=== PATIENT | male | born 1985 | race Caucasian/White ===

== ENCOUNTER 2021-07-20 23:12 | Inpatient (IN) | payer MEDICARE, MEDICAID, SELFPAY ==
--- NOTE | ~2021-07-20 | CT_ITS ---
EXAMINATION: CT ABDOMEN AND PELVIS WITHOUT CONTRAST CLINICAL INFORMATION: Abdominal pain. Question pancreatitis. COMPARISON: None TECHNIQUE: Multidetector volumetric imaging was performed from the superior aspect of the liver through the pubic symphysis. Sagittal and coronal reformatted images were obtained on the technologist's workstation. This CT examination was performed using dose optimization techniques as appropriate, variously including the following: *Automated exposure control *Adjustment of mA and/or kV according to patient size (this includes techniques or standardized protocols for targeted exams where dose is matched to indication/reason for exam; i.e. extremities or head) *Use of iterative reconstruction technique DLP: 774 mGy-cm FINDINGS: LUNG BASES: The visualized lung bases are unremarkable. LIVER, GALLBLADDER, AND BILIARY TREE: The liver is normal in size and shape. Parenchymal hypoattenuation, consistent with steatosis. No focal hepatic lesion or biliary ductal dilatation is present. The gallbladder is unremarkable with no evidence of radiopaque gallstones, gallbladder wall thickening, or obvious pericholecystic inflammatory changes. PANCREAS: There is diffuse thickening and heterogeneity of the pancreas with prominent adjacent fat stranding, consistent with acute pancreatitis. There is mild adjacent upper abdominal free fluid. No definite organized fluid collection or pseudocyst formation. Evaluation is somewhat limited without IV contrast. No pancreatic ductal dilatation. SPLEEN: Unremarkable. ADRENAL GLANDS: Unremarkable. KIDNEYS AND URETERS: The kidneys are normal in size, shape, and attenuation. No hydronephrosis, hydroureter, or calculi seen. No perinephric stranding. BLADDER: Unremarkable. GASTROINTESTINAL TRACT: There is mild wall thickening and inflammatory change adjacent to the gastric fundus and antrum as well as within the upper abdominal small bowel loops, reactive to the adjacent pancreatitis. Additionally, there is bowel wall thickening and inflammatory change adjacent to the splenic flexure, also likely reactive. No evidence of perforation or abscess formation. Unremarkable appendix. No small or large bowel obstruction. PERITONEAL CAVITY: No intra-abdominal free air. No organized fluid collection/abscess formation. ABDOMINAL WALL: No significant hernia is appreciated. LYMPH NODES: Normal. VASCULAR: Unremarkable. PELVIC VISCERA: The prostate and seminal vesicles are unremarkable. OSSEOUS STRUCTURES: Unremarkable. CT/CT abdomen pelvis wo con IMPRESSION: Findings consistent with prominent acute pancreatitis. There is significant adjacent fat stranding without evidence of an organized fluid collection or pseudocyst formation. Evaluation is somewhat limited without IV contrast. Reactive bowel wall thickening and edema within the adjacent gastric fundus and antrum as well as the adjacent small bowel loops and splenic flexure of the colon. No evidence of bowel perforation or abscess formation. Trace upper abdominal ascites. Fleischner guidelines were followed.
[2021-07-20 23:18] VITALS: BP 150/100; PULSE 65; O2SAT 98
[2021-07-21 00:38] VITALS: BP 138/85; PULSE 57; RESP 18; TEMP 36.7; O2SAT 98; BMI 27.8
[2021-07-21] MEDS: Ondansetron ODT 4 MG TAB.RAPDIS TRANSLINGU (00:45)
[2021-07-21] MEDS: Acetaminophen 325 MG TABLET 650 MG PO (00:45)
[2021-07-21 01:06] LABS: MANUAL DIFF FLAG NO
[2021-07-21 01:07] LABS: Basophils Percent Auto 0.1 % (0-2); Hematocrit 44.4 % (42.0-52.0); Hemoglobin 15.4 g/dl (14.0-18.0); Imm Gran Abs Auto 0.05 X10*3/uL (0.00-0.03); Imm Gran Pct Auto 0.4 % (0.0-0.4); Lymphocytes Absolute Auto 0.9 X10*3/uL (1.2-4.9); Lymphocytes Percent Auto 6.5 % (20-40); Mean Corpuscular HGB Conc 34.7 g/dl (31.0-36.0); Mean Corpuscular Hemoglobin 30.7 pg (27.0-33.0); Mean Corpuscular Volume 88.4 fL (80.0-98.0); Mean Platelet Volume 9.6 fL (9.4-12.4); Monocytes Absolute Auto 0.6 X10*3/uL (0.1-1.2); Monocytes Percent Auto 4.2 % (2-11); Neutrophils Absolute Auto 12.1 x10*3/uL (2.0-8.3); Neutrophils Percent Auto 88.8 % (45-73); Platelet Count 262 X10*3/uL (160-400); Red Blood Count 5.02 X10*6/uL (4.60-5.80); Red Cell Distribution Width 15.8 % (11.0-16.0); White Blood Count 13.6 X10*3/uL (4.8-10.8)
--- NOTE | 2021-07-21 01:15 | PC.NURSE ---
Pt with poor venous access d/t drug abuse. Triage nurse Jose Guadalupe WISE could only draw CBC.
[2021-07-21 04:14] LABS: Alanine Aminotransferase 34 U/L (0-40); Albumin Level 4.1 g/dL (3.5-5.0); Alkaline Phosphatase 144 U/L (39-117); Anion Gap 18 (12-20); Aspartate Amino Transferase 33 U/L (5-37); Bilirubin Total 1.1 mg/dL (0.0-1.0); Blood Urea Nitrogen 9 mg/dL (9-16); Calcium 9.8 mg/dL (8.4-10.2); Carbon Dioxide 18 mmol/L (22-29); Chloride 105 mmol/L (96-108); Cholesterol 185 mg/dL; Creatinine Clr Calc Pharmacy 122.3; Estimated Glomerular Filt Rate > 60; Glucose Random 168 mg/dL (60-115); HDL Cholesterol 32 mg/dL; LDL Cholesterol Calculated 126 mg/dl; Potassium 5.3 mmol/L (3.3-5.1); Sodium 136 mmol/L (135-145); Total Protein 7.8 g/dL (6.5-8.0); Triglycerides 137 mg/dL
--- NOTE | 2021-07-21 04:44 | ED.ALCOHOL ---
HPI - Alcohol General Chief Complaint: ETOH/Substance Use Stated Complaint: ABD Pain Time Seen by Provider: 07/21/21 04:29 Source: patient Mode of arrival: EMS History of Present Illness HPI narrative: 36-year-old male who is on the methadone program and and occasional heroin user, but primarily drinks alcohol almost daily states that he has been unable to drink secondary to multiple episodes of nausea and vomiting without blood for most of the day and subsequent epigastric pain but denies any fever or chills, diarrhea, or urinary symptoms. Patient states he has had mild withdrawal symptoms before with the shakes but denies any seizure activity. Related Data Allergies Allergy/AdvReac Type Severity Reaction Status Date / Time quetiapine [From SEROQUEL] Allergy Intermediate IRRITABILIT Unverified 11/10/19 16:04 Y Review of Systems Review of Systems: Pertinent positives and negatives as stated in HPI 10 point review of systems is otherwise negative. PMFSH Past Medical History Source: nursing notes reviewed Social History Social History Advance Directives: No Physical Exam ED Vital Signs: Vital Signs - 24 hr 07/21/21 00:38 07/21/21 07:44 Temperature 98.0 F Pulse Rate 57 66 Respiratory Rate 18 14 Blood Pressure 138/85 143/79 H Pulse Oximetry 98 99 BMI result Body Mass Index 27.8 VITAL SIGNS: Reviewed. GENERAL: Well developed, well nourished, in no acute distress. HEAD: Normocephalic/atraumatic EYES: PERRLA, EOMI EARS: Ext canals without abnormality OROPHARYNX: no oral lesions noted, posterior pharynx clear LUNGS: Normal breath sounds. No adventitious sounds or accessory muscle use. SpO2<98> CARDIOVASCULAR: Regular rate and rhythm without noted murmurs ABDOMEN: Soft, epigastric discomfort, non-distended with bowel sounds. No rigidity. No guarding. No palpable masses or hernias noted MUSCULOSKELETAL: No tenderness, deformities, or effusions noted on gross inspection. EXTREMITIES: No cyanosis, clubbing or edema. SKIN: Inspection of the skin reveals no rashes NEUROLOGIC: Alert and oriented x 4. Strength and sensation to light touch were grossly intact x 4. Course Course Course Narrative: 36-year-old male with history and clinical presentation consistent with alcoholic gastritis and will rule pancreatitis. Patient received 2 L of IV fluids, antiemetics, as well as gastritis medication. Review of all investigations consistent with patient's multiple episodes of nausea and vomiting likely resulting in reactive leukocytosis as well as moderate dehydration with a noted bicarb-18. Will continue to observe and repeat BMP at 06:00. Review and re-evaluation consistent with improvement moderate dehydration, chemistries demonstrate improvement, but patient continues to have considerable pain as well as being nauseous. CT scan ordered as well as alcohol withdrawal protocol. I discussed this case with the inpatient hospitalist who accepts admission. MDM - Alcohol Lab Data Result diagrams: 07/21/21 00:47 07/21/21 05:44 Labs: Lab Results 07/21/21 07/21/21 07/21/21 Range/Units 00:47 03:42 05:44 WBC 13.6 H (4.8-10.8) X10*3/uL RBC 5.02 (4.60-5.80) X10*6/uL Hgb 15.4 (14.0-18.0) g/dl Hct 44.4 (42.0-52.0) % MCV 88.4 (80.0-98.0) fL MCH 30.7 (27.0-33.0) pg MCHC 34.7 (31.0-36.0) g/dl RDW 15.8 (11.0-16.0) % Plt Count 262 (160-400) X10*3/uL MPV 9.6 (9.4-12.4) fL Immature Gran % (Auto) 0.4 (0.0-0.4) % Neut % (Auto) 88.8 H (45-73) % Lymph % (Auto) 6.5 L (20-40) % [place] % (Auto) 4.2 (2-11) % Eos % (Auto) 0.0 (0-4) % Baso % (Auto) 0.1 (0-2) % Lymph # (Auto) 0.9 L (1.2-4.9) X10*3/uL [place] # (Auto) 0.6 (0.1-1.2) X10*3/uL Eos # (Auto) 0.0 (0.0-0.4) X10*3/uL Baso # (Auto) 0.0 (0.0-0.2) X10*3/uL Abs Immat Gran (auto) 0.05 H (0.00-0.03) X10*3/uL Absolute Neuts (auto) 12.1 H (2.0-8.3) x10*3/uL Absolute Nucleated RBC 0.000 (0.0-0.012) X10*3/uL Nucleated RBC % (auto) 0.0 (0.0-0.2) /100WBC Sodium 136 136 (135-145) mmol/L Potassium 5.3 H 4.3 (3.3-5.1) mmol/L Chloride 105 104 (96-108) mmol/L Carbon Dioxide 18 L 21 L (22-29) mmol/L Anion Gap 18 15 (12-20) BUN 9 10 (9-16) mg/dL Creatinine 0.98 0.89 (0.5-1.4) mg/dL Estim Creat Clear Calc 122.3 134.7 Estimated GFR > 60 > 60 Random Glucose 168 H 185 H (60-115) mg/dL Calcium 9.8 9.9 (8.4-10.2) mg/dL Magnesium 1.9 (1.6-2.6) mg/dL Total Bilirubin 1.1 H (0.0-1.0) mg/dL AST 33 (5-37) U/L ALT 34 (0-40) U/L Alkaline Phosphatase 144 H (39-117) U/L Total Protein 7.8 (6.5-8.0) g/dL Albumin 4.1 (3.5-5.0) g/dL Triglycerides 137 mg/dL Cholesterol 185 mg/dL LDL Cholesterol, Calc 126 mg/dl HDL Cholesterol 32 mg/dL Lipase 963 H (8-78) U/L Discharge Plan Discharge Clinical Impression: Alcohol dependence, Acute alcoholic gastritis, Dehydration, moderate, Acute pancreatitis Patient Disposition: Admitted As Inpatient
[2021-07-21 04:58] LABS: Lipase 963 U/L (8-78)
[2021-07-21 05:13] LABS: Magnesium 1.9 mg/dL (1.6-2.6)
[2021-07-21] MEDS: chlordiazePOXIDE HCl 25 MG CAPSULE PO (05:13)
[2021-07-21] MEDS: Pantoprazole Sodium 40 MG/10 ML VIAL IVPUSH (05:14)
[2021-07-21] MEDS: Prochlorperazine Edisylate 10 MG/2 ML VIAL IVPUSH (05:14)
[2021-07-21] MEDS: 0.9 % Sodium Chloride 2,000 ML 999 ML IV (05:30)
[2021-07-21 06:05] LABS: Anion Gap 15 (12-20); Blood Urea Nitrogen 10 mg/dL (9-16); Calcium 9.9 mg/dL (8.4-10.2); Carbon Dioxide 21 mmol/L (22-29); Chloride 104 mmol/L (96-108); Creatinine Clr Calc Pharmacy 134.7; Estimated Glomerular Filt Rate > 60; Glucose Random 185 mg/dL (60-115); Potassium 4.3 mmol/L (3.3-5.1); Sodium 136 mmol/L (135-145)
[2021-07-21 07:44] VITALS: BP 143/79; PULSE 66; RESP 14; O2SAT 99
[2021-07-21 08:34] LABS: COVID-19 Test Positive (Negative); IDNOW Serial# 16C4AD1C
[2021-07-21] MEDS: HYDROmorphone HCl 0.5 MG/0.5 ML SYRINGE 0.25 MG IVPUSH (08:35)
[2021-07-21] MEDS: ondansetron HCL 4 MG/2 ML VIAL IVPUSH (08:36)
[2021-07-21] MEDS: 0.9 % Sodium Chloride 1,000 ML 200 ML IVCONT (08:42)
--- NOTE | 2021-07-21 09:20 | PHA.MEDREC ---
Pharmacy Consult ? Medication Reconciliation Pharmacy has completed the medication reconciliation. Patient seems to be a poor historian. Reports taking olanzapine 15 mg as need instead of as prescribed. I left in the home medication list as a daily medication. Patient reports he is on methadone 75 mg daily. Will F/U with methadone clinic in [place]. Adrienne Olivas, ElizabethD
--- NOTE | 2021-07-21 11:09 | HE.PHANOTE ---
Methadone dose confirm with [facility]. Patient recieved 75 mg on 07/19/2021 confirmed with [facility]. Adrienne Olivas, ElizabethD
--- NOTE | 2021-07-21 11:30 | MHC.RECOVSUP ---
Recovery Support note: Patient is a 36 year old [place]utanese speaking male who [place] [facility] due to nausea and vomiting. Patient is currently pending admission. This service writer advisor met with patient briefly to methadone maintenance. Patient reports he last received 75mg through [facility] [place] [address] on 07/19. Per EMR, pharmacy confirmed this. Discussed case with Shanta RENE. Patient to resume his methadone. ED staff aware.
--- NOTE | 2021-07-21 11:48 | P.HPHOSP_ITS ---
History of Present Illness Date of Service: 07/21/21 Attending physician on admission: Kwesi [facility] Chief Complaint: Abdominal pain 36-year-old man presenting to the ER with complaints of worsening nausea vomiting, abdominal pain over the last 3 days. He also reported chills but denied fever, recent illness, recent travel, improperly cooked foods, chest pain, shortness of breath, diarrhea. He reports that he drinks about 6 naps a day and has a history of IV heroin but reported that he had not used in several weeks. At this time he is homeless. He reported diffuse abdominal pain with some radiation to his back. Abdominal CT showing findings consistent with prominent acute pancreatitis with no organized fluid collection or pseudocyst. No significant electrolyte abnormalities noted other than lipase of 963. In the ER he was given IV fluids, pain medication and was started on phenobarbital. He will be admitted for further management and treatment of acute pancreatitis. Review of Systems Review of Systems: Denies any recent fever chills or decrease in appetite respiratory denies any shortness of breath coverage production cardiovascular Denies chest pain gastrointestinal see HPI genitourinary denies any dysuria frequency or hematuria musculoskeletal denies any joint pain or swelling neuropsych denies any weakness or seizures all other systems reviewed are negative [facility] Medical History (Updated 07/21/21 @ 11:52 by María Denny NP) Alcohol dependence Hepatitis C Mental health disorder Substance abuse Pertinent family history: no reported history of cardiac disease Social History Advance Directives: No Meds Allergies Allergy/AdvReac Type Severity Reaction Status Date / Time quetiapine [From SEROQUEL] Allergy Intermediate IRRITABILIT Unverified 11/10/19 16:04 Y Active Medications: Current Medications Acetaminophen (Acetaminophen 325 Mg Tablet) 650 mg PO Q6H PRN PRN Reason: Pain, Mild (Pain Scale 1-3) Clonazepam (Clonazepam 0.5 Mg Tablet) 0.5 mg PO DAILY PRN PRN Reason: Anxiety Enoxaparin Sodium (Enoxaparin Sodium 40 Mg/0.4 Ml Syringe) 40 mg SUBCUT Q24H [facility] Famotidine (Famotidine/Pf 20 Mg/2 Ml Vial) 20 mg IVPUSH BID NATALIE Folic Acid (Folic Acid 1 Mg Tablet) 1 mg PO DAILY [facility] Hydromorphone HCl (Hydromorphone Hcl 1 Mg/Ml Syringe) 1 mg IVPUSH Q4H PRN; Protocol PRN Reason: Pain, Moderate (Pain Scale 4-6 Sodium Chloride (Ns) 1,000 mls @ 200 mls/hr IVCONT .Q5H [facility] Stop: 07/21/21 12:59 Last Admin: 07/21/21 08:42 Dose: 200 mls/hr Documented by: Lactated Ringer's (Lr) 1,000 mls @ 150 mls/hr IVCONT .Q6H40M [facility] Non-Formulary Medication (Glecaprevir-Pibrentasvir [Mavyret]) 3 tab PO DAILY [facility] Non-Formulary Medication (Methadone) 75 mg PO DAILY [facility] Olanzapine (Olanzapine 7.5 Mg Tablet) 15 mg PO DAILY [facility] Ondansetron HCl (Ondansetron Hcl 4 Mg/2 Ml Vial) 4 mg IVPUSH Q8H PRN PRN Reason: Nausea and Vomiting Pharmacy Consult (Consult Rx Perform Med Rec) 1 each MISCELLANE ONCE PRN PRN Reason: Consult order Pharmacy Consult (Consult Rx Etoh Phenob Po Dose) 1 each MISCELLANE ONCE PRN; Protocol PRN Reason: Consult order Phenobarbital (Phenobarbital 30 Mg Tablet) 30 mg PO Q4H PRN PRN Reason: Breakthrough alcohol withdrawa Phenobarbital 200 mg/ (Phenobarbital 30 mg) 230 mg PO Q3H [facility] Stop: 07/21/21 14:01 Phenobarbital (Phenobarbital 30 Mg Tablet) 60 mg PO BID [facility]; Protocol Stop: 07/23/21 09:01 Phenobarbital (Phenobarbital 30 Mg Tablet) 30 mg PO BID [facility]; Protocol Stop: 07/25/21 09:01 Phenobarbital (Phenobarbital 30 Mg Tablet) 30 mg PO DAILY [facility]; Protocol Stop: 07/26/21 09:01 Sodium Chloride (0.9 % Sodium Chloride Flush 3 Ml Syringe) 3 ml IVFLUSH QSHIFT [facility] Thiamine HCl (Thiamine Hcl 100 Mg Tablet) 100 mg PO DAILY [facility] Home Medications Medication Instructions Recorded Confirmed Last Taken Type clonazepam 0.5 mg tablet 1 tab PO DAILY PRN 07/21/21 07/21/21 Unknown History glecaprevir 100 mg-pibrentasvir 40 3 tab PO DAILY 07/21/21 07/21/21 Unknown History mg tablet (Mavyret) methadone 5 mg/5 mL oral solution 75 mg PO DAILY 07/21/21 07/21/21 07/19/21 History olanzapine 15 mg tablet 1 tab PO DAILY 07/21/21 07/21/21 Unknown History Physical Exam Vital Signs and Narrative: Vital Signs: Last Vital Signs Temp 98.0 F 07/21/21 00:38 Pulse 66 07/21/21 07:44 Resp 14 07/21/21 07:44 BP 143/79 H 07/21/21 07:44 Pulse Ox 99 07/21/21 07:44 BMI result Body Mass Index 27.8 Appearing in no acute distress head is normocephalic atraumatic eyes pupils are PERRLA sclera is anicteric mouth throat mucous membranes are intact and moist neck is supple no lymphadenopathy, no JVD noted lung sounds are clear to auscultation heart regular rate rhythm, clear S1, S2 positive bowel sounds, abdomen is soft, nontender neuro patient is alert x3, no focal deficits Results Labs CBC and Chem 7: 07/21/21 00:47 07/21/21 05:44 Labs: Laboratory Results - last 24 hr 07/21/21 07/21/21 07/21/21 00:47 03:42 05:44 MCV 88.4 MCH 30.7 MCHC 34.7 RDW 15.8 Plt Count 262 MPV 9.6 Immature Gran % (Auto) 0.4 Neut % (Auto) 88.8 H Lymph % (Auto) 6.5 L [place] % (Auto) 4.2 Eos % (Auto) 0.0 Baso % (Auto) 0.1 Lymph # (Auto) 0.9 L [place] # (Auto) 0.6 Eos # (Auto) 0.0 Baso # (Auto) 0.0 Abs Immat Gran (auto) 0.05 H Absolute Neuts (auto) 12.1 H Absolute Nucleated RBC 0.000 Nucleated RBC % (auto) 0.0 Anion Gap 18 15 Estim Creat Clear Calc 122.3 134.7 Estimated GFR > 60 > 60 Random Glucose 168 H 185 H Calcium 9.8 9.9 Magnesium 1.9 Total Bilirubin 1.1 H AST 33 ALT 34 Alkaline Phosphatase 144 H Total Protein 7.8 Albumin 4.1 Triglycerides 137 Cholesterol 185 LDL Cholesterol, Calc 126 HDL Cholesterol 32 Lipase 963 H COVID-19 (GLADIS) COVID-19 Clin Com 07/21/21 08:17 MCV MCH MCHC RDW Plt Count MPV Immature Gran % (Auto) Neut % (Auto) Lymph % (Auto) [place] % (Auto) Eos % (Auto) Baso % (Auto) Lymph # (Auto) [place] # (Auto) Eos # (Auto) Baso # (Auto) Abs Immat Gran (auto) Absolute Neuts (auto) Absolute Nucleated RBC Nucleated RBC % (auto) Anion Gap Estim Creat Clear Calc Estimated GFR Random Glucose Calcium Magnesium Total Bilirubin AST ALT Alkaline Phosphatase Total Protein Albumin Triglycerides Cholesterol LDL Cholesterol, Calc HDL Cholesterol Lipase COVID-19 (GLADIS) Positive A COVID-19 Clin Com See Note Imaging Radiologist's Impressions: Impressions Abdomen/Pelvis CT 07/21/21 08:38 IMPRESSION: Findings consistent with prominent acute pancreatitis. There is significant adjacent fat stranding without evidence of an organized fluid collection or pseudocyst formation. Evaluation is somewhat limited without IV contrast. Reactive bowel wall thickening and edema within the adjacent gastric fundus and antrum as well as the adjacent small bowel loops and splenic flexure of the colon. No evidence of bowel perforation or abscess formation. Trace upper abdominal ascites. Fleischner guidelines were followed. Assessment and Plan (1) Acute alcoholic gastritis: Status: Acute Plan 36-year-old man at admitted with acute pancreatitis secondary to alcohol abuse Acute pancreatitis Drinks 6 nips a day Abdominal CT showing pancreatitis without pseudocyst or fluid collection Aggressive IV fluid hydration with LR@150 Pain management Follow lipase IV Pepcid Clear liquid diet for now if tolerated Alcohol abuse No overt withdrawal symptoms Start phenobarbital Substance abuse History of heroin use Monitor for withdrawal symptoms Continue methadone Mental health Continue home medications History of hepatitis-C Continue current treatment DVT prophylaxis with Lovenox Attending Dr. Valerio Full code Quality Stroke Does the patient have a stroke diagnosis?: No VTE Prior VTE?: No VTE Risk Level:: Medical - moderate - high VTE Device Contraindication: Treatment Not Indicated VTE Drug Contraindication: N/A - Med Ordered
[2021-07-21] MEDS: PHENobarbitaL 200 MG, PHENobarbitaL 30 MG 230 MG PO ×2 (12:02→14:36)
[2021-07-21] MEDS: methADONE HCl 20 MG/2 ML ORAL.CONC 75 MG PO (12:04)
[2021-07-21] MEDS: Lactated Ringers 1,000 ML 150 ML IVCONT ×2 (12:23→21:53)
[2021-07-21 16:10] VITALS: BP 129/73; PULSE 82; RESP 18; TEMP 36.8; O2SAT 97
[2021-07-21] MEDS: HYDROmorphone HCl 1 MG/ML SYRINGE IVPUSH ×2 (20:33→23:41)
[2021-07-21] MEDS: PHENobarbitaL 30 MG TABLET 60 MG PO (21:49)
[2021-07-21] MEDS: Famotidine/PF 20 MG/2 ML VIAL IVPUSH (21:50)
--- NOTE | 2021-07-21 23:35 | PC.NURSE ---
Pt. repeatedly c/o pain and requesting another dose of Dilaudid. Dilaudid ordered Q4hrs. Provider MD Broderick ok to give next dose now, early.
[2021-07-22] VITALS: BP 141/78; PULSE 80; RESP 18; TEMP 36.8; O2SAT 97
[2021-07-22] MEDS: 0.9 % Sodium Chloride Flush 3 ML SYRINGE IVFLUSH ×2 (01:21→10:15)
[2021-07-22] MEDS: Lactated Ringers 1,000 ML 150 ML IVCONT ×2 (01:26→06:17)
[2021-07-22 04:13] VITALS: BP 124/82; PULSE 86; RESP 13; TEMP 36.4; O2SAT 96
[2021-07-22] MEDS: HYDROmorphone HCl 1 MG/ML SYRINGE IVPUSH ×5 (04:45→23:39)
[2021-07-22 07:10] LABS: Basophils Percent Auto 0.1 % (0-2); Eosinophils Percent Auto 0.2 % (0-4); Hematocrit 45.7 % (42.0-52.0); Hemoglobin 15.5 g/dl (14.0-18.0); Imm Gran Abs Auto 0.06 X10*3/uL (0.00-0.03); Imm Gran Pct Auto 0.5 % (0.0-0.4); Lymphocytes Absolute Auto 1.6 X10*3/uL (1.2-4.9); Lymphocytes Percent Auto 13.2 % (20-40); MANUAL DIFF FLAG NO; Mean Corpuscular HGB Conc 33.9 g/dl (31.0-36.0); Mean Corpuscular Hemoglobin 30.6 pg (27.0-33.0); Mean Corpuscular Volume 90.3 fL (80.0-98.0); Monocytes Percent Auto 8.5 % (2-11); Neutrophils Absolute Auto 9.4 x10*3/uL (2.0-8.3); Neutrophils Percent Auto 77.5 % (45-73); Platelet Count 227 X10*3/uL (160-400); Red Blood Count 5.06 X10*6/uL (4.60-5.80); White Blood Count 12.1 X10*3/uL (4.8-10.8)
[2021-07-22 07:32] LABS: Lipase 568 U/L (8-78)
[2021-07-22 07:41] LABS: Anion Gap 13 (12-20); Blood Urea Nitrogen 8 mg/dL (9-16); Carbon Dioxide 23 mmol/L (22-29); Chloride 101 mmol/L (96-108); Creatinine Clr Calc Pharmacy 159.9; Estimated Glomerular Filt Rate > 60; Glucose Random 115 mg/dL (60-115); Potassium 4.2 mmol/L (3.3-5.1); Sodium 133 mmol/L (135-145)
[2021-07-22 07:48] LABS: Calcium 9.1 mg/dL (8.4-10.2)
[2021-07-22] MEDS: Thiamine HCL 100 MG TABLET PO (09:20)
[2021-07-22] MEDS: Folic Acid 1 MG TABLET PO (09:20)
[2021-07-22] MEDS: methADONE HCl 20 MG/2 ML ORAL.CONC 75 MG PO (09:20)
[2021-07-22] MEDS: PHENobarbitaL 30 MG TABLET 60 MG PO ×2 (09:20→22:09)
[2021-07-22] MEDS: Famotidine/PF 20 MG/2 ML VIAL IVPUSH ×2 (10:15→22:08)
--- NOTE | 2021-07-22 11:15 | HO.PM.IMPN ---
Subjective Subjective Date of Service: 07/22/21 Review of Systems Follow up pancreatitis still with abd pain and nausea Physical Exam Vital Signs: Vital Signs: Last Vital Signs Temp 97.6 F 07/22/21 04:13 Pulse 86 07/22/21 04:13 Resp 13 07/22/21 04:13 BP 124/82 07/22/21 04:13 Pulse Ox 96 07/22/21 04:13 BMI result Body Mass Index 27.8 Appearing in no acute distress lung sounds are clear to auscultation heart regular rate rhythm, clear S1, S2 positive bowel sounds, abdomen is soft, nontender neuro patient is alert x3, no focal deficits Objective Data Active Medications Acetaminophen (Acetaminophen 325 Mg Tablet) 650 mg PO Q6H PRN PRN Reason: Pain, Mild (Pain Scale 1-3) Clonazepam (Clonazepam 0.5 Mg Tablet) 0.5 mg PO DAILY PRN PRN Reason: Anxiety Enoxaparin Sodium (Enoxaparin Sodium 40 Mg/0.4 Ml Syringe) 40 mg SUBCUT Q24H [facility] Last Admin: 07/21/21 12:05 Dose: Not Given Documented by: JHONNY Non-Admin Reason: Patient Refused Famotidine (Famotidine/Pf 20 Mg/2 Ml Vial) 20 mg IVPUSH BID [facility] Last Admin: 07/22/21 10:15 Dose: 20 mg Documented by: SANTHOSH Folic Acid (Folic Acid 1 Mg Tablet) 1 mg PO DAILY [facility] Last Admin: 07/22/21 09:20 Dose: 1 mg Documented by: SANTHOSH Hydromorphone HCl (Hydromorphone Hcl 1 Mg/Ml Syringe) 1 mg IVPUSH Q4H PRN; Protocol PRN Reason: Pain, Moderate (Pain Scale 4-6 Last Admin: 07/22/21 10:15 Dose: 1 mg Documented by: SANTHOSH Lactated Ringer's (Lr) 1,000 mls @ 150 mls/hr IVCONT .Q6H40M [facility] Last Infusion: 07/22/21 11:06 Dose: 0 mls/hr Documented by: SANTHOSH Methadone HCl (Methadone Hcl 20 Mg/2 Ml Oral.Conc) 75 mg PO DAILY [facility] Last Admin: 07/22/21 09:20 Dose: 75 mg Documented by: SANTHOSH Non-Formulary Medication (Glecaprevir-Pibrentasvir [Mavyret]) 3 tab PO DAILY [facility] Olanzapine (Olanzapine 7.5 Mg Tablet) 15 mg PO DAILY [facility] Ondansetron HCl (Ondansetron Hcl 4 Mg/2 Ml Vial) 4 mg IVPUSH Q8H PRN PRN Reason: Nausea and Vomiting Pharmacy Consult (Consult Rx Perform Med Rec) 1 each MISCELLANE ONCE PRN PRN Reason: Consult order Pharmacy Consult (Consult Rx Etoh Phenob Po Dose) 1 each MISCELLANE ONCE PRN; Protocol PRN Reason: Consult order Phenobarbital (Phenobarbital 30 Mg Tablet) 30 mg PO Q4H PRN PRN Reason: Breakthrough alcohol withdrawa Phenobarbital (Phenobarbital 30 Mg Tablet) 60 mg PO BID [facility]; Protocol Stop: 07/23/21 09:01 Last Admin: 07/22/21 09:20 Dose: 60 mg Documented by: SANTHOSH Phenobarbital (Phenobarbital 30 Mg Tablet) 30 mg PO BID [facility]; Protocol Stop: 07/25/21 09:01 Phenobarbital (Phenobarbital 30 Mg Tablet) 30 mg PO DAILY [facility]; Protocol Stop: 07/26/21 09:01 Sodium Chloride (0.9 % Sodium Chloride Flush 3 Ml Syringe) 3 ml IVFLUSH QSHIFT [facility] Last Admin: 07/22/21 10:15 Dose: 3 ml Documented by: SANTHOSH Thiamine HCl (Thiamine Hcl 100 Mg Tablet) 100 mg PO DAILY [facility] Last Admin: 07/22/21 09:20 Dose: 100 mg Documented by: SANTHOSH Labs CBC & Chem 7: 07/22/21 07:01 07/22/21 07:01 Labs: Laboratory Results - last 24 hr 07/22/21 07/22/21 07/22/21 07:01 07:01 07:01 MCV 90.3 MCH 30.6 MCHC 33.9 RDW 16.0 Plt Count 227 MPV 10.0 Immature Gran % (Auto) 0.5 H Neut % (Auto) 77.5 H Lymph % (Auto) 13.2 L [place] % (Auto) 8.5 Eos % (Auto) 0.2 Baso % (Auto) 0.1 Lymph # (Auto) 1.6 [place] # (Auto) 1.0 Eos # (Auto) 0.0 Baso # (Auto) 0.0 Abs Immat Gran (auto) 0.06 H Absolute Neuts (auto) 9.4 H Absolute Nucleated RBC 0.000 Nucleated RBC % (auto) 0.0 Anion Gap 13 Estim Creat Clear Calc 159.9 Estimated GFR > 60 Random Glucose 115 D Calcium 9.1 D Lipase 568 H Assessment and Plan (1) Acute alcoholic gastritis: Status: Acute Plan 36-year-old man at admitted with acute pancreatitis secondary to alcohol abuse Acute pancreatitis Drinks 6 nips a day Abdominal CT showing pancreatitis without pseudocyst or fluid collection Aggressive IV fluid hydration with LR@150 Pain management Follow lipase IV Pepcid Clear liquid diet for now if tolerated Covid 19 Asymptomatic no hypoxia Alcohol abuse No overt withdrawal symptoms Start phenobarbital Substance abuse History of heroin use Monitor for withdrawal symptoms Continue methadone Mental health Continue home medications History of hepatitis-C Continue current treatment DVT prophylaxis with Lovenox Attending Dr. Griffith Full code Quality Stroke Does the patient have a stroke diagnosis?: No VTE Prior VTE?: No VTE Risk Level:: Medical - moderate - high VTE Device Contraindication: Treatment Not Indicated VTE Drug Contraindication: N/A - Med Ordered
[2021-07-22] MEDS: Enoxaparin Sodium 40 MG/0.4 ML SYRINGE SUBCUT (11:16)
--- NOTE | 2021-07-22 14:01 | MHC.CM.PN ---
IMM 07/22/21, EMR REVIEWED, PT ADMITTED W/PANCREATITIS, CM MET W/PT WHO IS A&O, PT REPORTS HE LIVES ALONE, HAS METHADONE MAINT AT [facility] IN [place], PT DENIES USE OF DME OR ANY OTHER SERVICES, PT VERIFIES PCP IS [facility], DENIES BEING COVID VACCINATED AND CURRENTLY DECLINING TO COMPLETE A HCP. D/C PLAN: HOME NO SERVICES VS ADDITIONAL SA TX, PT TO ARRANGE TRANSPORT
[2021-07-22 14:49] VITALS: BP 118/79; PULSE 100; RESP 17; TEMP 37.3; O2SAT 96
[2021-07-22] MEDS: clonazePAM 0.5 MG TABLET PO (16:49)
[2021-07-22] MEDS: PHENobarbitaL 30 MG TABLET PO (16:49)
[2021-07-22] MEDS: OLANZapine 7.5 MG TABLET 15 MG PO (22:12)
[2021-07-22 23:48] VITALS: BP 153/94; PULSE 82; RESP 19; TEMP 37.1; O2SAT 94
--- NOTE | 2021-07-23 04:57 | PC.NURSE ---
Addendum entered by Richie Carrillo RN 07/23/21 05:37: PO DILAUDID 2MG GIVEN..REMAIN UNABLE TO REGAIN IV ACCESS...DECLINES FURTHER ATTEMPTS..STATED OK WITH PO DILAUDID FOR PAIN CONTROL Original Note: CARE ASSUMED 23:15..AWAKE..ALERT..ORIENTED X3...OOB AD PIERRE STEADY GAIT...LR 100 CC/HR AT HS...MEDICATED WITH PRN DILAUDID FOR C/O ABDOMINAL PAIN ..DOZING AFTERWARDS...IV FOUND DISLODGED AT 03:30 FOR F/U ASSESSMENT..UNABLE TO RESTART IV ACCESS...SPINNING FRAME FIXER UPDATED..FOR ER/ICU TEAM TO RE-ATTEMPT IV ACCESS...DR SWAIN UPDATED R/T NO IV ACCESS...PO DILAUDID X1 DOSE ORDERED BY ..PENDING VERIFICATION BY PHARMACY
[2021-07-23] MEDS: HYDROmorphone HCl 2 MG TABLET PO ×3 (05:15→21:10)
--- NOTE | 2021-07-23 07:02 | PM.EVENT ---
Event Note Date of Service: 07/23/21 Event Note: pt lost IV access, difficult to obtain a second IV despite nursing staff trying. IV Dilaudid changed to po with adequate pain control
--- NOTE | 2021-07-23 07:15 | HE.PHANOTE ---
SPOKE TO NURSE IN OVERFLOW; PATIENT IS HOMELESS AND DOES NOT HAVE NON-FORMULARY MAVYRET PER RN. 07/22/21
[2021-07-23 08:13] LABS: Anion Gap 13 (12-20); Blood Urea Nitrogen 7 mg/dL (9-16); Calcium 8.9 mg/dL (8.4-10.2); Carbon Dioxide 22 mmol/L (22-29); Chloride 103 mmol/L (96-108); Creatinine Clr Calc Pharmacy 157.8; Estimated Glomerular Filt Rate > 60; Glucose Random 104 mg/dL (60-115); Lipase 182 U/L (8-78); Potassium 4.3 mmol/L (3.3-5.1); Sodium 134 mmol/L (135-145)
[2021-07-23] MEDS: methADONE HCl 20 MG/2 ML ORAL.CONC 75 MG PO (08:22)
[2021-07-23] MEDS: Thiamine HCL 100 MG TABLET PO (08:22)
[2021-07-23] MEDS: Folic Acid 1 MG TABLET PO (08:22)
[2021-07-23] MEDS: PHENobarbitaL 30 MG TABLET 60 MG PO (08:22)
[2021-07-23 08:42] VITALS: BP 118/64; PULSE 87; RESP 20; TEMP 37.6; O2SAT 95
--- NOTE | 2021-07-23 09:24 | MHC.CM.PN ---
CM met with Patient at bedside (unaware that CM had already seen/assessed Patient). IMM addressed and the original has been given to him and a copy placed on the chart. Patient states that he lives with his EX-Girlfriend. CM will follow.
[2021-07-23] MEDS: Lactated Ringers 1,000 ML 150 ML IVCONT ×2 (12:10→17:26)
--- NOTE | 2021-07-23 12:16 | P.PNIM_ITS ---
Subjective Subjective Date of Service: 07/23/21 Review of Systems Follow up pancreatitis still with abd pain and nausea Physical Exam Vital Signs: Vital Signs: Last Vital Signs Temp 99.6 F 07/23/21 08:42 Pulse 87 07/23/21 08:42 Resp 20 07/23/21 08:42 BP 118/64 07/23/21 08:42 Pulse Ox 95 07/23/21 08:42 BMI result Body Mass Index 27.8 Appearing in no acute distress lung sounds are clear to auscultation heart regular rate rhythm, clear S1, S2 positive bowel sounds, abdomen is soft,diffuse tenderness neuro patient is alert x3, no focal deficits Objective Data Active Medications Acetaminophen (Acetaminophen 325 Mg Tablet) 650 mg PO Q6H PRN PRN Reason: Pain, Mild (Pain Scale 1-3) Clonazepam (Clonazepam 0.5 Mg Tablet) 0.5 mg PO DAILY PRN PRN Reason: Anxiety Last Admin: 07/22/21 16:49 Dose: 0.5 mg Documented by: SANTHOSH Enoxaparin Sodium (Enoxaparin Sodium 40 Mg/0.4 Ml Syringe) 40 mg SUBCUT Q24H [facility] Last Admin: 07/22/21 11:16 Dose: 40 mg Documented by: SANTHOSH Famotidine (Famotidine/Pf 20 Mg/2 Ml Vial) 20 mg IVPUSH BID [facility] Last Admin: 07/23/21 10:19 Dose: Not Given Documented by: JOSHUA Non-Admin Reason: No Access Folic Acid (Folic Acid 1 Mg Tablet) 1 mg PO DAILY [facility] Last Admin: 07/23/21 08:22 Dose: 1 mg Documented by: JOSHUA Hydromorphone HCl (Hydromorphone Hcl 2 Mg Tablet) 2 mg PO Q6H PRN PRN Reason: Pain, Severe (Pain Scale 7-10) Last Admin: 07/23/21 12:11 Dose: 2 mg Documented by: JOSHUA Lactated Ringer's (Lr) 1,000 mls @ 150 mls/hr IVCONT .Q6H40M [facility] Last Admin: 07/23/21 12:10 Dose: 150 mls/hr Documented by: JOSHUA Methadone HCl (Methadone Hcl 20 Mg/2 Ml Oral.Conc) 75 mg PO DAILY [facility] Last Admin: 07/23/21 08:22 Dose: 75 mg Documented by: JOSHUA Non-Formulary Medication (Glecaprevir-Pibrentasvir [Mavyret]) 3 tab PO DAILY [facility] Olanzapine (Olanzapine 7.5 Mg Tablet) 15 mg PO BEDTIME [facility] Last Admin: 07/22/21 22:12 Dose: 15 mg Documented by: GIBSON Ondansetron HCl (Ondansetron Hcl 4 Mg/2 Ml Vial) 4 mg IVPUSH Q8H PRN PRN Reason: Nausea and Vomiting Pharmacy Consult (Consult Rx Perform Med Rec) 1 each MISCELLANE ONCE PRN PRN Reason: Consult order Pharmacy Consult (Consult Rx Etoh Phenob Po Dose) 1 each MISCELLANE ONCE PRN; Protocol PRN Reason: Consult order Phenobarbital (Phenobarbital 30 Mg Tablet) 30 mg PO Q4H PRN PRN Reason: Breakthrough alcohol withdrawa Last Admin: 07/22/21 16:49 Dose: 30 mg Documented by: SANTHOSH Phenobarbital (Phenobarbital 30 Mg Tablet) 30 mg PO BID [facility]; Protocol Stop: 07/25/21 09:01 Phenobarbital (Phenobarbital 30 Mg Tablet) 30 mg PO DAILY [facility]; Protocol Stop: 07/26/21 09:01 Sodium Chloride (0.9 % Sodium Chloride Flush 3 Ml Syringe) 3 ml IVFLUSH QSHIFT [facility] Last Admin: 07/23/21 10:19 Dose: Not Given Documented by: JOSHUA Non-Admin Reason: No Access Thiamine HCl (Thiamine Hcl 100 Mg Tablet) 100 mg PO DAILY [facility] Last Admin: 07/23/21 08:22 Dose: 100 mg Documented by: JOSHUA Labs CBC & Chem 7: 07/22/21 07:01 07/23/21 07:46 Labs: Laboratory Results - last 24 hr 07/23/21 07/23/21 07:46 07:46 Anion Gap 13 Estim Creat Clear Calc 157.8 Estimated GFR > 60 Random Glucose 104 Calcium 8.9 Lipase 182 H Cancelled Assessment and Plan (1) Acute alcoholic gastritis: Status: Acute Plan 36-year-old man at admitted with acute pancreatitis secondary to alcohol abuse Acute pancreatitis still with abd pain Drinks 6 nips a day Abdominal CT showing pancreatitis without pseudocyst or fluid collection Aggressive IV fluid hydration with LR@150 Pain management Follow lipase IV Pepcid tolerating clear liquid diet Covid 19 Asymptomatic no hypoxia Alcohol abuse No overt withdrawal symptoms Start phenobarbital Substance abuse History of heroin use Monitor for withdrawal symptoms Continue methadone Mental health Continue home medications History of hepatitis-C Continue current treatment DVT prophylaxis with Lovenox Attending Dr. Jacobs Full code Continue hospitalization for treatment of acute pancreatitis requiring IV pain medication and IV fluids Quality Stroke Does the patient have a stroke diagnosis?: No VTE Prior VTE?: No VTE Risk Level:: Medical - moderate - high VTE Device Contraindication: Treatment Not Indicated VTE Drug Contraindication: N/A - Med Ordered
[2021-07-23] MEDS: Enoxaparin Sodium 40 MG/0.4 ML SYRINGE SUBCUT (12:18)
[2021-07-23 12:43] VITALS: BP 109/65; PULSE 77; RESP 20; TEMP 37.2; O2SAT 97
[2021-07-23 20:44] VITALS: BP 119/57; PULSE 89; RESP 17; TEMP 37.4; O2SAT 97
[2021-07-23] MEDS: PHENobarbitaL 30 MG TABLET PO (21:09)
[2021-07-23] MEDS: OLANZapine 7.5 MG TABLET 15 MG PO (21:09)
[2021-07-23] MEDS: Famotidine/PF 20 MG/2 ML VIAL IVPUSH (21:10)
[2021-07-24] MEDS: Lactated Ringers 1,000 ML 150 ML IVCONT ×2 (00:45→10:35)
[2021-07-24] MEDS: HYDROmorphone HCl 2 MG TABLET PO ×3 (04:00→16:31)
[2021-07-24 08:00] VITALS: BP 110/73; PULSE 88; RESP 20; TEMP 37.1; O2SAT 96
[2021-07-24] MEDS: Thiamine HCL 100 MG TABLET PO (09:40)
[2021-07-24] MEDS: Acetaminophen 325 MG TABLET 650 MG PO (09:40)
[2021-07-24] MEDS: PHENobarbitaL 30 MG TABLET PO ×2 (09:41→21:24)
[2021-07-24] MEDS: methADONE HCl 20 MG/2 ML ORAL.CONC 75 MG PO (09:41)
[2021-07-24] MEDS: Famotidine/PF 20 MG/2 ML VIAL IVPUSH ×2 (09:41→21:24)
[2021-07-24] MEDS: Folic Acid 1 MG TABLET PO (09:41)
[2021-07-24] MEDS: Enoxaparin Sodium 40 MG/0.4 ML SYRINGE SUBCUT (10:35)
--- NOTE | 2021-07-24 14:33 | HO.PM.IMPN ---
Subjective Subjective Date of Service: 07/24/21 Interval History: the patient was seen and evaluated this morning Laying in bed, still complaining of abdominal pain Able tolerate clear liquids Denies any fever, chills or chest pain No reported other overnight events. Systemic review: No fever, chills or weakness No chest pain, palpitation No shortness of breath or coughing reporting improved abdominal pain, nausea or vomiting No urinary symptoms No any rash or wounds Physical Exam Vital Signs: Vital Signs: Last Vital Signs Temp 98.8 F 07/24/21 08:00 Pulse 88 07/24/21 08:00 Resp 20 07/24/21 08:00 BP 110/73 07/24/21 08:00 Pulse Ox 96 07/24/21 08:00 BMI result Body Mass Index 27.8 Const: Other: Constitutional : Alert, oriented, not in distress Neck : Normal inspection, Supple Cardiovascular : RRR, no JVP, no lower extremity edema Respiratory : fair bilateral air entry, no crackles, wheezes or rhonchi Gastrointestinal: soft, lax, Normal bowel sounds, epigastric tenderness with no surgical signs Skin : Warm, Dry Neurological : Alert & oriented x3, No focal deficit , CN 2-12 within normal Objective Data Active Medications Acetaminophen (Acetaminophen 325 Mg Tablet) 650 mg PO Q6H PRN PRN Reason: Pain, Mild (Pain Scale 1-3) Last Admin: 07/24/21 09:40 Dose: 650 mg Documented by: NASRA Clonazepam (Clonazepam 0.5 Mg Tablet) 0.5 mg PO DAILY PRN PRN Reason: Anxiety Last Admin: 07/22/21 16:49 Dose: 0.5 mg Documented by: SANTHOSH Enoxaparin Sodium (Enoxaparin Sodium 40 Mg/0.4 Ml Syringe) 40 mg SUBCUT Q24H [facility] Last Admin: 07/24/21 10:35 Dose: 40 mg Documented by: NASRA Famotidine (Famotidine/Pf 20 Mg/2 Ml Vial) 20 mg IVPUSH BID [facility] Last Admin: 07/24/21 09:41 Dose: 20 mg Documented by: NASRA Folic Acid (Folic Acid 1 Mg Tablet) 1 mg PO DAILY [facility] Last Admin: 07/24/21 09:41 Dose: 1 mg Documented by: NASRA Hydromorphone HCl (Hydromorphone Hcl 2 Mg Tablet) 2 mg PO Q6H PRN PRN Reason: Pain, Severe (Pain Scale 7-10) Last Admin: 07/24/21 10:35 Dose: 2 mg Documented by: NASRA Methadone HCl (Methadone Hcl 20 Mg/2 Ml Oral.Conc) 75 mg PO DAILY [facility] Last Admin: 07/24/21 09:41 Dose: 75 mg Documented by: NASRA Non-Formulary Medication (Glecaprevir-Pibrentasvir [Mavyret]) 3 tab PO DAILY [facility] Olanzapine (Olanzapine 7.5 Mg Tablet) 15 mg PO BEDTIME [facility] Last Admin: 07/23/21 21:09 Dose: 15 mg Documented by: CHANELLE Ondansetron HCl (Ondansetron Hcl 4 Mg/2 Ml Vial) 4 mg IVPUSH Q8H PRN PRN Reason: Nausea and Vomiting Pharmacy Consult (Consult Rx Perform Med Rec) 1 each MISCELLANE ONCE PRN PRN Reason: Consult order Pharmacy Consult (Consult Rx Etoh Phenob Po Dose) 1 each MISCELLANE ONCE PRN; Protocol PRN Reason: Consult order Phenobarbital (Phenobarbital 30 Mg Tablet) 30 mg PO Q4H PRN PRN Reason: Breakthrough alcohol withdrawa Last Admin: 07/22/21 16:49 Dose: 30 mg Documented by: SANTHOSH Phenobarbital (Phenobarbital 30 Mg Tablet) 30 mg PO BID [facility]; Protocol Stop: 07/25/21 09:01 Last Admin: 07/24/21 09:41 Dose: 30 mg Documented by: NASRA Phenobarbital (Phenobarbital 30 Mg Tablet) 30 mg PO DAILY [facility]; Protocol Stop: 07/26/21 09:01 Sodium Chloride (0.9 % Sodium Chloride Flush 3 Ml Syringe) 3 ml IVFLUSH QSHIFT [facility] Last Admin: 07/24/21 09:41 Dose: Not Given Documented by: NASRA Non-Admin Reason: IV Running Thiamine HCl (Thiamine Hcl 100 Mg Tablet) 100 mg PO DAILY [facility] Last Admin: 07/24/21 09:40 Dose: 100 mg Documented by: NASRA Labs CBC & Chem 7: 07/22/21 07:01 07/23/21 07:46 Assessment and Plan (1) Acute alcoholic gastritis: Status: Acute (2) Acute pancreatitis: Status: Acute (3) COVID-19 virus infection: Status: Acute (4) Alcohol dependence: Status: Acute Plan 36-year-old man at admitted with acute pancreatitis secondary to alcohol abuse Acute pancreatitis improving Abdominal CT showing pancreatitis without pseudocyst or fluid collection continue Aggressive IV fluid hydration with LR@150 Pain management advanced diet as tolerated IV Pepcid Covid 19 Asymptomatic no hypoxia Alcohol abuse No overt withdrawal symptoms continue phenobarbital protocol Substance abuse History of heroin use Monitor for withdrawal symptoms Continue methadone Mental health Continue home medications History of hepatitis-C Continue current treatment DVT prophylaxis with Lovenox Attending Dr. Jacobs Full code the patient will need overnight hospital stay for treatment of acute pancreatitis requiring IV pain medication and IV fluids to prevent further decompensation into alcohol withdrawal and worsening pancreatitis Quality Stroke Does the patient have a stroke diagnosis?: No VTE Prior VTE?: No VTE Risk Level:: Medical - moderate - high VTE Device Contraindication: Treatment Not Indicated VTE Drug Contraindication: N/A - Med Ordered
[2021-07-24] MEDS: clonazePAM 0.5 MG TABLET PO (17:59)
[2021-07-24] MEDS: OLANZapine 7.5 MG TABLET 15 MG PO (21:24)
[2021-07-24 21:43] VITALS: BP 133/83; PULSE 88; RESP 18; TEMP 36.9; O2SAT 99
[2021-07-24] MEDS: 0.9 % Sodium Chloride Flush 3 ML SYRINGE IVFLUSH (22:09)
[2021-07-24] MEDS: HYDROmorphone HCl 2 MG TABLET 1 MG PO (22:10)
[2021-07-24 23:37] VITALS: BP 121/74; PULSE 86; RESP 18; TEMP 36.9; O2SAT 99
[2021-07-25] MEDS: HYDROmorphone HCl 2 MG TABLET 1 MG PO ×2 (02:08→05:59)
[2021-07-25 02:13] VITALS: BMI 28.0
[2021-07-25 07:29] VITALS: BP 157/96; PULSE 83; RESP 20; TEMP 36.9; O2SAT 96
[2021-07-25 08:50] LABS: Anion Gap 15 (12-20); Blood Urea Nitrogen 8 mg/dL (9-16); Calcium 9.1 mg/dL (8.4-10.2); Carbon Dioxide 18 mmol/L (22-29); Chloride 106 mmol/L (96-108); Creatinine Clr Calc Pharmacy 158.1; Estimated Glomerular Filt Rate > 60; Glucose Random 120 mg/dL (60-115); Sodium 135 mmol/L (135-145)
[2021-07-25] MEDS: methADONE HCl 20 MG/2 ML ORAL.CONC 75 MG PO (08:52)
[2021-07-25] MEDS: Folic Acid 1 MG TABLET PO (08:53)
[2021-07-25] MEDS: Thiamine HCL 100 MG TABLET PO (08:53)
[2021-07-25] MEDS: PHENobarbitaL 30 MG TABLET PO ×3 (08:53→20:42)
[2021-07-25] MEDS: Famotidine/PF 20 MG/2 ML VIAL IVPUSH ×2 (08:54→20:18)
[2021-07-25] MEDS: 0.9 % Sodium Chloride Flush 3 ML SYRINGE IVFLUSH ×2 (08:54→23:58)
[2021-07-25] MEDS: Enoxaparin Sodium 40 MG/0.4 ML SYRINGE SUBCUT (11:44)
[2021-07-25] MEDS: HYDROmorphone HCl 2 MG/ML VIAL 1 MG IVPUSH ×3 (11:45→22:15)
[2021-07-25] MEDS: Lactated Ringers 1,000 ML 125 ML IVCONT ×2 (11:55→17:50)
--- NOTE | 2021-07-25 12:40 | HO.PM.IMPN ---
Subjective Subjective Date of Service: 07/25/21 Interval History: the patient was seen and evaluated this morning complaining of Worsening abdominal pain reported vomiting with regular diet No reported other overnight events. Systemic review: No fever, chills or weakness No chest pain, palpitation No shortness of breath or coughing reporting worsen abdominal pain associated with nausea or vomiting No urinary symptoms No any rash or wounds Physical Exam Vital Signs: Vital Signs: Last Vital Signs Temp 98.4 F 07/25/21 07:29 Pulse 83 07/25/21 07:29 Resp 20 07/25/21 07:29 BP 157/96 H 07/25/21 07:29 Pulse Ox 96 07/25/21 07:29 BMI result Body Mass Index 28.0 Const: Other: Constitutional : Alert, oriented, not in distress Neck : Normal inspection, Supple Cardiovascular : RRR, no JVP, no lower extremity edema Respiratory : fair bilateral air entry, no crackles, wheezes or rhonchi Gastrointestinal: soft, lax, Normal bowel sounds, epigastric tenderness with no surgical signs Skin : Warm, Dry Neurological : Alert & oriented x3, No focal deficit , CN 2-12 within normal Objective Data Active Medications Acetaminophen (Acetaminophen 325 Mg Tablet) 650 mg PO Q6H PRN PRN Reason: Pain, Mild (Pain Scale 1-3) Last Admin: 07/24/21 09:40 Dose: 650 mg Documented by: NASRA Clonazepam (Clonazepam 0.5 Mg Tablet) 0.5 mg PO DAILY PRN PRN Reason: Anxiety Last Admin: 07/24/21 17:59 Dose: 0.5 mg Documented by: NASRA Enoxaparin Sodium (Enoxaparin Sodium 40 Mg/0.4 Ml Syringe) 40 mg SUBCUT Q24H [facility] Last Admin: 07/25/21 11:44 Dose: 40 mg Documented by: CLIFF Famotidine (Famotidine/Pf 20 Mg/2 Ml Vial) 20 mg IVPUSH BID [facility] Last Admin: 07/25/21 08:54 Dose: 20 mg Documented by: CLIFF Folic Acid (Folic Acid 1 Mg Tablet) 1 mg PO DAILY [facility] Last Admin: 07/25/21 08:53 Dose: 1 mg Documented by: CLIFF Hydromorphone HCl (Hydromorphone Hcl 2 Mg/Ml Vial) 1 mg IVPUSH Q6H PRN; Protocol PRN Reason: Pain, Severe (Pain Scale 7-10) Last Admin: 07/25/21 11:45 Dose: 1 mg Documented by: CLIFF Lactated Ringer's (Lr) 1,000 mls @ 125 mls/hr IVCONT .Q8H [facility] Last Admin: 07/25/21 11:55 Dose: 125 mls/hr Documented by: CLIFF Methadone HCl (Methadone Hcl 20 Mg/2 Ml Oral.Conc) 75 mg PO DAILY [facility] Last Admin: 07/25/21 08:52 Dose: 75 mg Documented by: CLIFF Nicotine Polacrilex (Nicotine Polacrilex 2 Mg Gum) 2 mg BUCCAL Q2H PRN PRN Reason: Nicotine Cravings Non-Formulary Medication (Glecaprevir-Pibrentasvir [Mavyret]) 3 tab PO DAILY [facility] Olanzapine (Olanzapine 7.5 Mg Tablet) 15 mg PO BEDTIME [facility] Last Admin: 07/24/21 21:24 Dose: 15 mg Documented by: MAKAYLA Ondansetron HCl (Ondansetron Hcl 4 Mg/2 Ml Vial) 4 mg IVPUSH Q8H PRN PRN Reason: Nausea and Vomiting Pharmacy Consult (Consult Rx Perform Med Rec) 1 each MISCELLANE ONCE PRN PRN Reason: Consult order Pharmacy Consult (Consult Rx Etoh Phenob Po Dose) 1 each MISCELLANE ONCE PRN; Protocol PRN Reason: Consult order Phenobarbital (Phenobarbital 30 Mg Tablet) 30 mg PO Q4H PRN PRN Reason: Breakthrough alcohol withdrawa Last Admin: 07/22/21 16:49 Dose: 30 mg Documented by: SANTHOSH Phenobarbital (Phenobarbital 30 Mg Tablet) 30 mg PO DAILY [facility]; Protocol Stop: 07/26/21 09:01 Last Admin: 07/25/21 08:54 Dose: 30 mg Documented by: CLIFF Sodium Chloride (0.9 % Sodium Chloride Flush 3 Ml [facility]) [facility] Last Admin: 07/25/21 08:54 Dose: 3 ml Documented by: CLIFF Thiamine HCl (Thiamine Hcl 100 Mg Tablet) 100 mg PO DAILY [facility] Last Admin: 07/25/21 08:53 Dose: 100 mg Documented by: CLIFF Labs CBC & Chem 7: 07/22/21 07:01 07/25/21 08:10 Labs: Laboratory Results - last 24 hr 07/25/21 08:10 Anion Gap 15 Estim Creat Clear Calc 158.1 Estimated GFR > 60 Random Glucose 120 H Calcium 9.1 Assessment and Plan (1) Alcohol dependence: Status: Acute (2) COVID-19 virus infection: Status: Acute (3) Acute pancreatitis: Status: Acute Plan 36-year-old man at admitted with acute pancreatitis secondary to alcohol abuse Acute pancreatitis little worse today Abdominal CT showing pancreatitis without pseudocyst or fluid collection restart IV fluid LR Pain management change diet to full liquids continue IV Pepcid Covid 19 Asymptomatic no hypoxia Alcohol abuse No overt withdrawal symptoms continue phenobarbital protocol Substance abuse History of heroin use Monitor for withdrawal symptoms Continue methadone Mental health Continue home medications History of hepatitis-C Continue current treatment DVT prophylaxis with Lovenox Full code the patient will need overnight hospital stay for treatment of acute pancreatitis requiring IV pain medication and IV fluids to prevent further decompensation into alcohol withdrawal and worsening pancreatitis Quality Stroke Does the patient have a stroke diagnosis?: No VTE Prior VTE?: No VTE Risk Level:: Medical - moderate - high VTE Device Contraindication: Treatment Not Indicated VTE Drug Contraindication: N/A - Med Ordered
[2021-07-25 15:07] VITALS: BP 140/89; PULSE 66; RESP 18; TEMP 36.2; O2SAT 98
[2021-07-25] MEDS: clonazePAM 0.5 MG TABLET PO (17:57)
[2021-07-25] MEDS: OLANZapine 7.5 MG TABLET 15 MG PO (20:17)
[2021-07-25 20:39] VITALS: BP 160/98; PULSE 87
[2021-07-25] MEDS: ondansetron HCL 4 MG/2 ML VIAL IVPUSH (20:42)
--- NOTE | 2021-07-25 20:58 | PC.NURSE ---
pt refusing telesiter
[2021-07-25 23:15] VITALS: BP 130/80; PULSE 63; RESP 18; TEMP 36.7; O2SAT 95
[2021-07-26] MEDS: HYDROmorphone HCl 2 MG/ML VIAL 1 MG IVPUSH ×3 (02:10→10:25)
[2021-07-26 06:17] VITALS: RESP 20
[2021-07-26] MEDS: PHENobarbitaL 30 MG TABLET PO ×2 (06:22→08:56)
[2021-07-26 07:28] VITALS: BP 125/91; PULSE 63; RESP 18; TEMP 36.2; O2SAT 98
[2021-07-26] MEDS: methADONE HCl 20 MG/2 ML ORAL.CONC 75 MG PO (08:55)
[2021-07-26] MEDS: 0.9 % Sodium Chloride Flush 3 ML SYRINGE IVFLUSH (08:55)
[2021-07-26] MEDS: Thiamine HCL 100 MG TABLET PO (08:56)
[2021-07-26] MEDS: Famotidine/PF 20 MG/2 ML VIAL IVPUSH (08:56)
[2021-07-26] MEDS: Folic Acid 1 MG TABLET PO (08:56)
[2021-07-26] MEDS: Lactated Ringers 1,000 ML 125 ML IVCONT (09:02)
--- NOTE | 2021-07-26 11:06 | P.DS_ITS ---
DS: Providers Provider Date of Service: 07/26/21 Date of admission: 07/21/21 11:42 Primary care physician: Unknown Physician DS: Diagnosis Discharge Diagnosis (1) Alcohol dependence: Status: Acute (2) COVID-19 virus infection: Status: Acute (3) Acute pancreatitis: Status: Acute (4) Acute alcoholic gastritis: Status: Acute (5) Dehydration, moderate: Status: Acute DS: Summary Hospital Course Hospital Course: HPI From admission H&P: '36-year-old man presenting to the ER with complaints of worsening nausea vomiting, abdominal pain over the last 3 days.? He also reported chills but denied fever, recent illness, recent travel, improperly cooked foods, chest pain, shortness of breath, diarrhea.? He reports that he drinks about 6 naps a day and has a history of IV heroin but reported that he had not used in several weeks.? At this time he is homeless.? He reported diffuse abdominal pain with some radiation to his back.? Abdominal CT showing findings consistent with prominent acute pancreatitis with no organized fluid collection or pseudocyst.? No significant electrolyte abnormalities noted other than lipase of 963.? In the ER he was given IV fluids, pain medication and was started on phenobarbital.? He will be admitted for further management and treatment of acute pancreatitis.' Hospital Course: Patient was treated with aggressive IV, IV analgesics, IV pepcid and NPO initially. His diet was slowly advanced. He was monitored clinically and biochemically. He is not tolerating a diet and eagar for discharge. His pain is esstentially resolved and he will be discharged home. He has been advised strict and complete alcohol cessation. For potential withdrawal, he was treated with p henobarb per protocol. Patient was incidentally found to be covid positive at the time of admission. He has no respiratory symptoms, no hypoxia and no symptoms to suggest lung involvement. He has been advised to follow self-isolation per cdc guidelines. Time Spent with Patient Time attestation: Total time spent providing and/or coordinating discharge services: Discharge coordination time: Greater than 30 minutes Quality: Safe Use of Opioids Does Pt have an Active Cancer Diagnosis on the Problem List?: No Quality: Stroke Does the patient have a stroke diagnosis?: No Physical Exam Vital Signs: Vital Signs: Last Vital Signs Temp 97.2 F 07/26/21 07:28 Pulse 63 07/26/21 07:28 Resp 18 07/26/21 07:28 BP 125/91 H 07/26/21 07:28 Pulse Ox 98 07/26/21 07:28 BMI result Body Mass Index 28.0 Const: Other: General - no acute distress, appears comfortable Cardiovascular - regular rate and rhythm, S1-S2 Lungs - normal respiratory effort, clear to auscultation bilaterally, no wheezing Abdomen - soft, nontender, no rebound or guarding Extremities - no edema bilaterally Neuro - awake and alert, no focal deficits Discharge Plan Discharge Patient Disposition: Home Health Service Discharge Diagnosis: Alcoholic pancreatitis Referrals: Physician,Unknown J [Primary Care Provider] - 1 Week Discharge Medications: Continued clonazepam 0.5 mg tablet 1 tab PO DAILY PRN (Reason: Anxiety) 0RF olanzapine 15 mg tablet 1 tab PO DAILY 0RF methadone 5 mg/5 mL Solution 75 mg PO DAILY 0RF Mavyret 100-40 mg tablet 3 tab PO DAILY 0RF Discharge Orders: Discharge Order (Routine); Ordered 07/26/21 Ordered By: Bud Jacobs Diet: advance to usual diet Activity on Discharge: As tolerated Stand Alone Forms: Patient Portal Discharge page Care Plan Goals: To stay healthy and out of the hospital. Health Concerns: Alcohol induced pancreatitis COVID 19 Plan of Treatment: Do not drink alcohol Maintain self isolation per CDC guidelines for COVID. If you develop fever, cough, shortness of breath or any other symptoms which worry you, please return to the ED or see your PCP Assessment: see discharge summary
--- NOTE | 2021-07-26 11:32 | MHC.CM.PN ---
Patient has been medically cleared for dc to home, self care. IMM addressed over the phone with Patient(COVID POSITIVE) and the original will be mailed certified letter to him and a copy has been placed on the chart. Patient is aware of and in agreement with the dc plan.
== END 2021-07-26 13:05 | disposition home or self-care (01) | DRG 438 ==
LOC: HO.ED 07-21 07:57 → HO.EDOVER 07-21 11:56 → HO.S3 07-24 00:39 → HO.EDOVER 07-24 00:52 → HO.IMC 07-24 18:17
PROVIDERS: Student in an Organized Health Care Education/Training Program; Admitting Provider Nurse Practitioner Acute Care; Emergency Provider Student in an Organized Health Care Education/Training Program; PCP Internal Medicine; Visit Provider Family Medicine
DX: K85.90 Acute pancreatitis without necrosis or infection, unspecified (principal); U07.1 COVID-19; F11.20 Opioid dependence, uncomplicated; K29.20 Alcoholic gastritis without bleeding; B19.20 Unspecified viral hepatitis C without hepatic coma; F17.210 Nicotine dependence, cigarettes, uncomplicated; Z71.6 Tobacco abuse counseling; E86.0 Dehydration; F10.20 Alcohol dependence, uncomplicated; Z79.899 Other long term (current) drug therapy
CPT/HCPCS: 36415; 74176; 80048; 80053; 80061; 83690; 83735; 85025; 87635; 96361; 96374; 96375; 99285; J1170; J1650; J2405